=== PATIENT | male | born 1980 ===

== ENCOUNTER 2018-11-02 21:00 | Emergency (ER) | payer SELFPAY ==
[2018-11-02] MEDS ORDERED: Sodium Chloride 0.9% 1,000 ML IV STA (21:59)
--- NOTE | 2018-11-02 22:22 | ED PDOC ---
HPI: Abdomen Time Seen by Provider: 11/02/18 21:21 Chief Complaint (Nursing): Abdominal Pain History Per: Patient Additional Complaint(s): Pt. states just [employer] he developed lower abdominal cramping associated with 6 episodes of non-bloody watery diarrhea then shortly after nausea and non-bloody vomiting started. Also reports developing a gradual onset headache after the vomiting. Reports feeling feverish but has not checked his temperature nor has he taken any antipyretics to help relieve symptoms. Denies cough, congestion, rash, melena, hematochezia, BRBPR, sick contacts, recent travel. Past Medical History Reviewed: Historical Data, Nursing Documentation, Vital Signs Vital Signs: Last Vital Signs Temp 99.4 F 11/02/18 21:06 Pulse 84 11/02/18 21:06 Resp 14 11/02/18 21:06 BP 159/78 H 11/02/18 21:06 Pulse Ox 100 11/02/18 21:06 - Medical History PMH: Anxiety Denies: Chronic Kidney Disease - Surgical History Surgical History: Appendectomy - Family History Family History: States: No Known Family Hx - Home Medications Home Medications: Ambulatory Orders Medication Instructions Recorded Dicyclomine [Bentyl] 20 mg PO DAILY PRN #12 tab 11/03/18 Ondansetron ODT [Zofran ODT] 4 mg PO TID #10 odt 11/03/18 - Allergies Allergies/Adverse Reactions: Allergies Allergy/AdvReac Type Severity Reaction Status Date / Time No Known Allergies Allergy Verified 11/02/18 21:09 Review of Systems ROS Statement: Except As Marked, All Systems Reviewed And Found Negative Gastrointestinal: Positive for: Nausea, Vomiting, Abdominal Pain, Diarrhea Neurological: Positive for: Headache Physical Exam - Physical Exam Appears: Positive for: Well, Non-toxic, No Acute Distress Skin: Positive for: Normal Color, Warm. Negative for: Rash Eye Exam: Positive for: Normal appearance Cardiovascular/Chest: Positive for: Regular Rate, Rhythm Respiratory: Positive for: Normal Breath Sounds Gastrointestinal/Abdominal: Positive for: Soft. Negative for: Tenderness Back: Negative for: L CVA Tenderness, R CVA Tenderness Neurologic/Psych: Positive for: Alert, Oriented (x3). Negative for: Aphasia, Facial Droop - Laboratory Results Result Diagrams: 11/02/18 22:20 11/02/18 22:20 - ECG O2 Sat by Pulse Oximetry: 100 - Progress ED Course And Treament: Labs, bentyl 20mg PO, zofran 4mg PO, IV NS bolus x 1 ordered. Obstructive series ordered. Case d/w Dr. Arevalo who agrees with plan and care. Results d/w patient. States he feels much better. Advised to f/u with PMD for further evaluation but is to return to ED immediately if symptoms worsen. Disposition - Clinical Impression Clinical Impression: Gastroenteritis - Patient ED Disposition Is Patient to be Admitted: No - Disposition Disposition: Routine/Home Disposition Time: 01:30 Condition: IMPROVED Additional Instructions: FOLLOW UP WITH [facility] FOR FURTHER EVALUATION RETURN TO ED IMMEDIATELY IF SYMPTOMS WORSEN ZACARIAS ALTAMIRANO, thank you for letting us take care of you today. Your provider was Sherrie Arevalo MD and you were treated for HEADACHE, VOMITING, ABD PAIN. The emergency medical care you received today was directed at your acute symptoms. If you were prescribed any medication, please fill it and take as directed. It may take several days for your symptoms to resolve. Return to the Emergency Department if your symptoms worsen, do not improve, or if you have any other problems. Please contact your doctor or call one of the physicians/clinics you have been referred to that are listed on the Patient Visit Information form that is included in your discharge packet. Bring any paperwork you were given at discharge with you along with any medications you are taking to your follow up visit. Our treatment cannot replace ongoing medical care by a primary care provider outside of the emergency department. Thank you for allowing the [facility] team to be part of your care today. If you had an X-Ray or CT scan: A Radiologist will review the ED reading if any change in treatment is needed we will contact you. If you had a blood, urine, or wound culture: It will take several days for the results, if any change in treatment is needed we will contact you. If you had an STI test: It will take 48 hours for the results. Please call after 1 week if you have not heard back. Prescriptions: Dicyclomine [Bentyl] 20 mg PO DAILY PRN #12 tab PRN Reason: abdominal pain Ondansetron ODT [Zofran ODT] 4 mg PO TID #10 odt Instructions: Gastroenteritis (ED) Forms: [employer] (H[place]ian)
[2018-11-02 22:31] LABS: EOS # 0.2 K/uL (0.0-0.7); EOS % 1.4 % (0.0-4.0); HEMOGLOBIN 14.1 g/dL (12.0-18.0); LYMPH # 0.8 K/uL (1.0-4.3); LYMPH % 4.9 % (20.0-40.0); MEAN CELL VOLUME 87.6 fl (80.0-94.0); MEAN CORPUSCULAR HEMOGLOBIN 29.7 pg (27.0-31.0); MONO # 0.6 K/uL (0.0-0.8); MONO % 3.6 % (0.0-10.0); NEUT # 14.6 K/uL (1.8-7.0); NEUT % 90.1 % (50.0-75.0); PLATELET COUNT 363 K/uL (130-400); RBC 4.75 Mil/uL (4.40-5.90); RED CELL DISTRIBUTION WIDTH 14.1 % (11.5-14.5); WHITE BLOOD COUNT 16.3 K/uL (4.8-10.8)
[2018-11-02 22:39] LABS: ALB/GLOB RATIO 1.3 (1.0-2.1); ALBUMIN 4.4 g/dL (3.5-5.0); ALT/SGPT 47 U/L (21-72); AST/SGOT 43 U/L (17-59); BLOOD UREA NITROGEN 23 mg/dl (9-20); CALCIUM 8.8 mg/dL (8.4-10.2); GFR NON-AFRICAN AMERICAN > 60; LIPASE 66 U/L (23-300)
[2018-11-02 23:32] LABS: BANDS 3 % (0-2); BASOPHIL 1 % (0-2); EOSINOPHIL 1 % (0-7); HYPOCHROMIC SLIGHT; LYMPHOCYTE 6 % (20-50); MONOCYTE 4 % (0-10); NEUTROPHIL 85 % (42-75); PLATELET ESTIMATE NORMAL (NORMAL); TOTAL CELLS COUNTED 100
[2018-11-02] MEDS ORDERED: Sodium Chloride 0.9% 50 ML IV ONE (23:32)
[2018-11-02] MEDS ORDERED: Iohexol 300 100 ML IJ ONE (23:32)
[2018-11-03 03:34] VITALS: BP 112/69; PULSE 86; RESP 18; TEMP 99.6
[2018-11-03 03:45] VITALS: O2SAT 100
--- NOTE | 2018-11-03 12:36 | RAD ---
Date of service: 11/02/2018 PROCEDURE: Radiographs of the chest and abdomen (obstructive series) HISTORY: abdominal pain COMPARISON: No prior. TECHNIQUE: AP radiograph of the chest, with upright and supine radiographs of the abdomen. FINDINGS: CHEST: Lungs: Clear. Cardiovascular: Normal size heart. No pulmonary vascular congestion. No aortic atherosclerotic calcification present Pleura: No pleural fluid. No pneumothorax. Other findings: None. ABDOMEN AND PELVIS: Bowel: Mildly dilated stomach with air-fluid level. Free air: None. Bones: Unremarkable. Other findings: None. IMPRESSION: Unremarkable radiographs of chest and abdomen. No evidence of mechanical bowel obstruction.
--- NOTE | 2018-11-03 14:26 | CT ---
Date of service: 11/02/2018 PROCEDURE: CT Abdomen and Pelvis with contrast HISTORY: Lower abdominal pain. COMPARISON: None. TECHNIQUE: Intravenous contrast dose: Radiation dose: Total exam DLP = <inf_radiation_dlp> mGy-cm. This CT exam was performed using one or more of the following dose reduction techniques: Automated exposure control, adjustment of the mA and/or kV according to patient size, and/or use of iterative reconstruction technique. FINDINGS: LOWER THORAX: Unremarkable. LIVER: Unremarkable. No gross lesion or ductal dilatation. GALLBLADDER AND BILE DUCTS: Unremarkable. PANCREAS: Unremarkable. No gross lesion or ductal dilatation. SPLEEN: Unremarkable. ADRENALS: Unremarkable. No mass. KIDNEYS AND URETERS: Unremarkable. No hydronephrosis. No solid mass. VASCULATURE: Unremarkable. No aortic aneurysm. No atherosclerotic calcification or mural plaque present. BOWEL: Unremarkable. No obstruction. No gross mural thickening. APPENDIX: Prior appendectomy PERITONEUM: Unremarkable. No free fluid. No free air. LYMPH NODES: Unremarkable. No enlarged lymph nodes. BLADDER: Unremarkable. REPRODUCTIVE: Unremarkable. BONES: No acute fracture. OTHER FINDINGS: None. IMPRESSION: No acute findings related to/ accounting for the clinical presentation. Additional benign and/or incidental findings described above. Concordant results (preliminary interpretation) provided by [facility]. Procedure Completed: 00:18. Preliminary Report: Dictated and Authenticated: 00:51. Final Interpretation: 02:22.
== END 2018-11-03 02:45 | disposition home or self-care (01) ==
LOC: H.ER 21:00
DX: K52.9 Noninfective gastroenteritis and colitis, unspecified (principal); Z79.899 Other long term (current) drug therapy; F41.9 Anxiety disorder, unspecified
CPT/HCPCS: 74022; 74177; 80053; 83690; 85025; 96361; 96374; 99283; J2405; J7030; Q9967